=== PATIENT | female | born 1970 | race Caucasian/White ===

== ENCOUNTER 2018-11-20 16:49 | Emergency (ER) | payer BC ==
[2018-11-20] MEDS ORDERED: MORPHINE SULFATE 10 MG/ML INJ IV ONE (17:04)
[2018-11-20] MEDS ORDERED: ONDANSETRON HCL INJ/PF 4 MG/2 ML SDV IV ONE ×2 (17:04→18:39)
[2018-11-20] MEDS ORDERED: NORMAL SALINE 1000 ML 1,000 ML IV ONE (17:05)
[2018-11-20 17:52] LABS: APPEARANCE,URINE SLIGHTLY-CLOUDY; BILIRUBIN,URINE NEGATIVE (NEGATIVE); COLOR,URINE YELLOW; GLUCOSE, URINE NEGATIVE (NEGATIVE); KETONES,URINE TRACE mg/dL (NEGATIVE); LEUKOCYTE ESTERASE,URINE NEGATIVE (NEGATIVE); NITRITE,URINE NEGATIVE (NEGATIVE); PROTEIN,URINE NEGATIVE (NEGATIVE); URINE SPECIFIC GRAVITY 1.014; UROBILINOGEN,URINE NEGATIVE mg/dL (<2.0)
[2018-11-20 18:00] LABS: ABSOLUTE MONOCYTES (AUTO) 0.9 10^3/uL (0.1-1.4); ABSOLUTE NEUT (AUTO) 16.5 10^3/uL (1.7-8.2); BASOPHILS % (AUTO) 0.2 % (0-2); EOSINOPHILS % (AUTO) 0.1 % (0-6); HEMOGLOBIN 13.3 g/dL (12.0-15.5); LYMPHOCYTES % (AUTO) 10.2 % (13-45); MEAN CORPUSCULAR HEMOGLOBIN 26.3 pg (27.0-33.4); MEAN CORPUSCULAR HGB CONC 33.2 g/dL (32.0-36.0); MEAN CORPUSCULAR VOLUME 79 fl (80-97); MONOCYTES % (AUTO) 4.7 % (3-13); PLATELET COUNT 320 10^3/uL (150-450); RED BLOOD COUNT 5.05 10^6/uL (3.72-5.28); RED CELL DISTRIBUTION WIDTH 14.2 % (11.5-14.0); SEGMENTED NEUTROPHILS % (AUTO) 84.8 % (42-78); TOTAL CELLS COUNTED % (AUTO) 100 %; WHITE BLOOD COUNT 19.5 10^3/uL (4.0-10.5)
[2018-11-20 18:10] LABS: ALANINE AMINOTRANSFERASE 27 U/L (9-52); ALBUMIN 4.2 g/dL (3.5-5.0); ALKALINE PHOSPHATASE 91 U/L (38-126); ANION GAP 8 (5-19); ASPARTATE AMINO TRANSFERASE 39 U/L (14-36); BILIRUBIN,DIRECT 0.4 mg/dL (0.0-0.4); BILIRUBIN,TOTAL 0.7 mg/dL (0.2-1.3); BLOOD UREA NITROGEN 12 mg/dL (7-20); CARBON DIOXIDE 24 mmol/L (22-30); CHLORIDE 107 mmol/L (98-107); GLUCOSE 112 mg/dL (75-110); POTASSIUM 4.4 mmol/L (3.6-5.0); SODIUM 139.1 mmol/L (137-145); TOTAL PROTEIN 8.1 g/dL (6.3-8.2)
--- NOTE | 2018-11-20 18:14 | ER Document Report ---
ED General - General Chief Complaint: Possible Kidney Stone Stated Complaint: RIGHT FLANK PAIN Time Seen by Provider: 11/20/18 17:02 TRAVEL OUTSIDE OF THE [place] IN LAST 30 DAYS: No - HPI Notes: Patient is a 48-year-old female with a history of hypertension who presents emergency department complaining of right flank pain that radiated around into her groin that began 2 hours ago. Patient states that the pain would wax and wane in intensity. Patient has had associated nausea and vomiting with urinary frequency and voiding small amounts. Patient states that since receiving pain medicine at [facility] the pain has significantly improved and has no discomfort at this time. No other recent illness. She is having normal bowel movements. No vaginal discharge, odor, or bleeding. She has a surgical history of a partial hysterectomy. Denies any headache, fever, neck pain, URI, sore throat, chest pain, palpitations, syncope, cough, shortness of breath, wheeze, dyspnea, diarrhea, urinary retention, dysuria, hematuria, loss of control of bowel or bladder, numbness/tingling, saddle anesthesia, muscle paralysis/weakness, or rash. - Related Data Allergies/Adverse Reactions: aspirin Allergy (Mild, Verified 11/20/18 16:53) codeine Allergy (Mild, Verified 11/20/18 16:52) Penicillins Allergy (Mild, Verified 11/20/18 16:53) Past Medical History - Social History Smoking Status: Never Smoker Chew tobacco use (# tins/day): No Frequency of alcohol use: None Drug Abuse: None Family History: Reviewed & Not Pertinent Patient has suicidal ideation: No Patient has homicidal ideation: No - Past Medical History Cardiac Medical History: Reports: Hx Hypertension Renal/ Medical History: Denies: Hx Peritoneal Dialysis Musculoskeletal Medical History: 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 HEAD: Atraumatic, normocephalic. EYES: Pupils equal round and reactive to light, extraocular movements intact, sclera anicteric, conjunctiva are normal. ENT: Nares patent and without discharge. oropharynx clear without exudates. No tonsilar hypertrophy or erythema. Moist mucous membranes. NECK: Normal range of motion, supple without lymphadenopathy LUNGS: Breath sounds clear to auscultation bilaterally and equal. No wheezes rales or rhonchi. HEART: Regular rate and rhythm without murmurs, rubs, gallops. ABDOMEN: Soft, nontender, nondistended abdomen. No guarding, no rebound. No masses appreciated. Normal bowel sounds present. No CVA tenderness bilaterally. : deferred Musculoskeletal: FROM to passive/active. Strength 5+/5. Extremities: No cyanosis, clubbing, or edema b/l. Peripheral pulses 2+. Capillary refill less than 3 seconds. NEUROLOGICAL: Normal speech, normal gait. PSYCH: Normal mood, normal affect. SKIN: Warm, Dry, normal turgor, no rashes or lesions noted. Course - Re-evaluation Re-evalutation: 11/20/18 18:27 Patient is an afebrile, well-hydrated, 48-year-old female who presents emergency department with a right ureteral stone, 2 mm. Vitals are acceptable without significant tachycardia, tachypnea, or hypoxia. PE is otherwise unremarkable. Patient's abdomen is soft and nontender. She is nontoxic-appearing and is able to tolerate p.o. without difficultly. She is currently symptomatic. I did review with Dr. Narvaez who is in agreement with dispo/plan. CBC does show elevated white count, contributing to nausea/vomiting/stress. CMP unremarkable as well as a urinalysis. Patient was given nausea medicine, pain medicine, and fluids here in the emergency department. No further labs or imaging warranted. Low suspicion/risk for acute appendicitis, bowel obstruction, acute cholecyst itis, acute cholangitis, perforated diverticulitis, incarcerated hernia, pancreatitis, perforated ulcer, peritonitis, sepsis, pelvic inflammatory disease, ectopic , tubo-ovarian abscess, ovarian torsion, or other systemic emergent condition at this time. Patient is aware that her condition can change from initial presentation and she needs to monitor symptoms closely and seek medical attention if any acute changes. Conservative measures otherwise for symptoms. Recheck with your PCM in 2-3 days. Schedule an appointment with urology. Return to the ED with any worsening/concerning s ymptoms otherwise as reviewed in discharge. Patient is in agreement. Pt takes motrin/aleve at home w/o difficulty. - Laboratory Result Diagrams: 11/20/18 17:15 11/20/18 17:15 Laboratory results interpreted by me: 11/20/18 11/20/18 11/20/18 17:15 17:15 17:15 WBC 19.5 H MCV 79 L MCH 26.3 L RDW 14.2 H Seg Neutrophils % 84.8 H Lymphocytes % 10.2 L Absolute Neutrophils 16.5 H Glucose 112 H AST 39 H Urine Ketones TRACE H Urine Ascorbic Acid 20 H Discharge - Discharge Clinical Impression: Right ureteral stone Condition: Stable Disposition: HOME, SELF-CARE Additional Instructions: Push fluids (i.e. water, cranberry juice) Proper hygenic technique Keep the skin clean Tylenol/ibuprofen as needed May use over the counter AZO for burning with urination Take medications as directed F/u with your PCM in 2-3 days for a recheck Schedule an appointment with urology Return to the ED with any worsening symptoms and/or development of fever, headache, chest pain, palpitations, syncope, shortness of breath, trouble breathing, abdominal pain, n/v/d, blood in stool/urine, loss of control of bowel/bladder, urinary retention, or other worsening symptoms that are concerning to you. Prescriptions: Morphine Sulfate [Morphine Ir 15 Mg Tablet] 15 mg PO TID #10 tablet Ondansetron [Zofran Odt 4 mg Tablet] 1 - 2 tab PO Q4H PRN #15 tab.rapdis PRN Reason: For Nausea/Vomiting Tamsulosin HCl [Flomax] 0.4 mg PO DAILY #10 cap.er.24h Forms: Elevated Blood Pressure Referrals: [facility] [Provider Group] - Follow up as needed
--- NOTE | 2018-11-20 18:17 | RADIOLOGY REPORT (SQ) ---
EXAM DESCRIPTION: CT ABD/PELVIS NO ORAL OR IV COMPLETED DATE/TIME: 11/20/2018 6:04 pm REASON FOR STUDY: right flank pain COMPARISON: None. TECHNIQUE: CT scan of the abdomen and pelvis performed without intravenous or oral contrast. Images reviewed with lung, soft tissue, and bone windows. Reconstructed coronal and sagittal MPR images revi ewed. All images stored on PACS. All CT scanners at this facility use dose modulation, iterative reconstruction, and/or weight based d osing when appropriate to reduce radiation dose to as low as reasonably achievable (ALARA). [facility]: Dose Right [facility]: CareDose [facility]: Dose Right [facility]: Teradose 4D [facility]: [employer] RADIATION DOSE: mGy. LIMITATIONS: None. FINDINGS: LOWER CHEST: No significant findings. No nodules or infiltrates. NON-CONTRASTED LIVER, SPLEEN, ADRENALS: Evaluation limited by lack of IV contrast. No identified sign ificant masses. PANCREAS: No masses. No peripancreatic inflammatory changes. GALLBLADDER: No identified stones by CT criteria. No inflammatory changes to suggest cholecystitis. RIGHT KIDNEY AND URETER: There is mild perinephric fat stranding present. No calcifications are not ed within the right kidney, however there is a 2 mm calcification in the distal right ureter at the u reterovesicular junction. There is mild dilatation of the renal pelvis as well as the right ureter with some periureteral fat stranding as well. LEFT KIDNEY AND URETER: No suspicious masses. Assessment limited by lack of IV contrast. No signifi cant calcifications. No hydronephrosis or hydroureter. AORTA AND RETROPERITONEUM: No aneurysm. No retroperitoneal masses or adenopathy. BOWEL AND PERITONEAL CAVITY: No obvious masses or inflammatory changes. No free fluid. APPENDIX: Not visualized. PELVIS, BLADDER, AND ABDOMINAL WALL:The uterus is surgically absent. The ovaries are normal in appea miguel for age and technique. BONES: No significant findings. OTHER: No other significant finding. IMPRESSION: Mildly obstructing 2mm right sided ureterolith COMMENT: Quality ID # [id number]: Final reports with documentation of one or more dose reduction techniques (e.g., Automated exposure control, adjustment of the mA and/or kV according to patient size, use of iterative reconstruction technique) TECHNICAL DOCUMENTATION: JOB ID: [id number] [employer]- All Rights Reserved Reading location - IP/workstation name: [facility]
[2018-11-20 18:26] LABS: LIPASE 73.9 U/L (23-300)
[2018-11-20] MEDS ORDERED: KETOROLAC TROMETHAMINE INJ/PF 30 MG/1 ML SDV IV ONE (18:32)
[2018-11-20 18:51] VITALS: BP 157/71
--- NOTE | 2018-11-20 21:19 | ER Document Report ---
ED Medical Screen (RME) - General Chief Complaint: Possible Kidney Stone Stated Complaint: RIGHT FLANK PAIN Time Seen by Provider: 11/20/18 17:02 Primary Care Provider: G[facility] [Provider Group] - Follow up as needed Mode of Arrival: Ambulatory Information source: Patient Notes: 48-year-old female presented to ED for complaint of right flank pain for a few hours. She states she is also had nausea and vomiting. The flank pain is severe. She states she has a history of high blood pressure and juvenile rheumatoid arthritis. She states she is also had a hysterectomy and a knee surgery. She was medicated with morphine 4 mg of Zofran for her severe pain. Patient was alert oriented respirations regular and unlabored but in pain. I have greeted and performed a rapid initial assessment of this patient. A comprehensive ED assessment and evaluation of the patient, analysis of test results and completion of medical decision making process will be conducted by an additional ED providers. TRAVEL OUTSIDE OF THE [place] 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 Past Surgical History: Reports: Hx Hysterectomy, Hx Orthopedic Surgery - knee surgery Physical Exam - Vital signs Vitals: Temp Pulse Resp BP Pulse Ox 98.5 F 82 18 164/103 H 98 11/20/18 16:52 11/20/18 16:52 11/20/18 16:52 11/20/18 16:52 11/20/18 16:52 Course - Vital Signs Vital signs: Temp Pulse Resp BP Pulse Ox 97.8 F 74 18 157/71 H 98 11/20/18 18:50 11/20/18 18:50 11/20/18 18:50 11/20/18 18:50 11/20/18 18:50 - Laboratory Result Diagrams: 11/20/18 17:15 04/20/19 17:15 Laboratory results interpreted by me: 11/20/18 11/20/18 11/20/18 17:15 17:15 17:15 WBC 19.5 H MCV 79 L MCH 26.3 L RDW 14.2 H Seg Neutrophils % 84.8 H Lymphocytes % 10.2 L Absolute Neutrophils 16.5 H Glucose 112 H AST 39 H Urine Ketones TRACE H Urine Ascorbic Acid 20 H Doctor's Discharge - Discharge Clinical Impression: Right ureteral stone Condition: Stable Disposition: HOME, SELF-CARE Additional Instructions: Push fluids (i.e. water, cranberry juice) Proper hygenic technique Keep the skin clean Tylenol/ibuprofen as needed May use over the counter AZO for burning with urination Take medications as directed F/u with your PCM in 2-3 days for a recheck Schedule an appointment with urology Return to the ED with any worsening symptoms and/or development of fever, headache, chest pain, palpitations, syncope, shortness of breath, trouble b reathing, abdominal pain, n/v/d, blood in stool/urine, loss of control of bowel/bladder, urinary retention, or other worsening symptoms that are concerning to you. Prescriptions: Morphine Sulfate [Morphine Ir 15 Mg Tablet] 15 mg PO TID #10 tablet Ondansetron [Zofran Odt 4 mg Tablet] 1 - 2 tab PO Q4H PRN #15 tab.rapdis PRN Reason: For Nausea/Vomiting Tamsulosin HCl [Flomax] 0.4 mg PO DAILY #10 cap.er.24h Forms: Elevated Blood Pressure Referrals: [facility] [Provider Group] - Follow up as needed
== END 2018-11-20 18:56 | disposition home or self-care (01) ==
LOC: ER 16:49
DX: N20.1 Calculus of ureter (principal); R10.9 Unspecified abdominal pain; R11.2 Nausea with vomiting, unspecified; R35.0 Frequency of micturition; I10 Essential (primary) hypertension
CPT/HCPCS: 96376; 99284; 96361; 96374; 96375; 36415; 83690; 85025; 80053; 81001; 74176; J1885; J2270; J2405; J7030